=== PATIENT | female | born 1945 | race Native Hawaiian/Other Pacific Islander ===

== ENCOUNTER 2017-03-28 11:59 | Outpatient (CLI) | payer OTHER, BC | END 2017-03-28 21:21 | disposition home or self-care (01) | LOC: RAD 11:59 | DX: R05 Cough (principal) ==

== ENCOUNTER 2020-07-07 10:19 | Outpatient (CLI) | payer OTHER | END 2020-07-07 21:09 | disposition home or self-care (01) | LOC: MAMMO 10:19 | PROVIDERS: ATTEND Specialist | DX: Z12.31 Encounter for screening mammogram for malignant neoplasm of breast (principal) ==

== ENCOUNTER 2020-10-09 11:24 | Outpatient (CLI) | payer OTHER ==
[2020-10-09 12:47] LABS: PLATELET COUNT 305 K/uL (152-353)
[2020-10-09 13:37] LABS: POTASSIUM 4.2 mmol/L (3.6-5.2)
== END 2020-10-09 22:51 | disposition home or self-care (01) ==
LOC: LABW 11:24
PROVIDERS: ATTEND Internal Medicine
DX: I10 Essential (primary) hypertension (principal); R06.00 Dyspnea, unspecified
CPT/HCPCS: 36415; 80053; 81000; 82024; 82043; 82088; 82533; 82552; 82570; 83735; 83835; 84100; 84155; 84244; 84436; 84443; 85027

== ENCOUNTER 2020-10-13 09:48 | Outpatient (CLI) | payer OTHER | END 2020-10-13 21:34 | disposition home or self-care (01) | LOC: US 09:48 | PROVIDERS: ATTEND Internal Medicine | DX: I10 Essential (primary) hypertension (principal); N18.32 Chronic kidney disease, stage 3b | CPT/HCPCS: 93975 ==

== ENCOUNTER 2022-01-06 10:23 | Outpatient (CLI) | payer OTHER | END 2022-01-06 22:08 | disposition home or self-care (01) | LOC: MAMMO 10:23 | PROVIDERS: ATTEND Nurse Practitioner Women's Health | DX: Z12.31 Encounter for screening mammogram for malignant neoplasm of breast (principal) ==

== ENCOUNTER 2022-05-02 12:56 | Outpatient (CLI) | payer OTHER | END 2022-05-02 20:23 | disposition home or self-care (01) | LOC: RAD 12:56 | PROVIDERS: ATTEND Internal Medicine | DX: M84.342A Stress fracture, left hand, initial encounter for fracture (principal); Z13.820 Encounter for screening for osteoporosis; N95.8 Other specified menopausal and perimenopausal disorders ==

== ENCOUNTER 2023-01-09 11:55 | Outpatient (CLI) | payer OTHER | END 2023-01-09 19:16 | disposition home or self-care (01) | LOC: MAMMO 11:55 | PROVIDERS: ATTEND Obstetrics & Gynecology | DX: Z12.31 Encounter for screening mammogram for malignant neoplasm of breast (principal) ==